=== PATIENT | male | born 1970 | race Caucasian/White ===

== ENCOUNTER 2018-07-12 17:42 | Emergency (ER) | payer SELFPAY ==
[2018-07-12] MEDS ORDERED: ASPIRIN 81 MG TABLET, CHEWABLE PO ONE (18:42)
[2018-07-12] MEDS ORDERED: ONDANSETRON 4 MG TAB.RAPDIS PO ONE (18:44)
--- NOTE | 2018-07-12 18:45 | ER Document Report ---
ED Medical Screen (RME) - General Chief Complaint: Low Back Pain Stated Complaint: BACK PAIN, FREQ URINATION, CHEST PAIN Time Seen by Provider: 07/12/18 18:42 Mode of Arrival: Ambulatory Information source: Patient Notes: Patient with abdominal pain that wraps around the waist for the past 2 weeks and upper abdominal pain to the right upper quadrant and epigastric area for the past 2 weeks as well. Patient states pain will occasionally radiate to the left chest area. Patient is concerned he may be having gallbladder issues. Patient states that he has had urinary frequency for the past 3-4 weeks. Patient does complain of nausea. Patient states that he was incontinent of urine this morning which prompted his visit today. Patient is never had any problems with incontinence. Patient has since been able to hold his urine although he has some urgency with going to the bathroom. Patient denies any fever or vomiting. I have greeted and performed a rapid initial assessment of this patient. A comprehensive ED assessment and evaluation of the patient, analysis of test results and completion of the medical decision making process will be conducted by additional ED providers. TRAVEL OUTSIDE OF THE [place] IN LAST 30 DAYS: No - Related Data Allergies/Adverse Reactions: No Known Allergies Allergy (Verified 07/12/18 17:46) Physical Exam - Vital signs Vitals: Temp Pulse Resp BP Pulse Ox 97.6 F 100 16 142/89 H 97 07/12/18 18:21 07/12/18 18:21 07/12/18 18:21 07/12/18 18:21 07/12/18 18:21 - Abdominal Tenderness: Tender - Epigastric, right upper quadrant, lower abd pain Course - Vital Signs Vital signs: Temp Pulse Resp BP Pulse Ox 97.6 F 100 16 142/89 H 97 07/12/18 18:21 07/12/18 18:21 07/12/18 18:21 07/12/18 18:21 07/12/18 18:21
--- NOTE | 2018-07-12 19:13 | RADIOLOGY REPORT (SQ) ---
EXAM DESCRIPTION: CHEST 2 VIEWS COMPLETED DATE/TIME: 07/12/2018 6:59 pm REASON FOR STUDY: cp COMPARISON: None. EXAM PARAMETERS: NUMBER OF VIEWS: two views TECHNIQUE: Digital Frontal and Lateral radiographic views of the chest acquired. RADIATION DOSE: NA LIMITATIONS: none FINDINGS: LUNGS AND PLEURA: No opacities, masses or pneumothorax. No pleural effusion. MEDIASTINUM AND HILAR STRUCTURES: No masses or contour abnormalities. HEART AND VASCULAR STRUCTURES: Heart normal size. No evidence for failure. BONES: Disc degenerative disease of the thoracic spine. HARDWARE: None in the chest. OTHER: No other significant finding. IMPRESSION: No acute abnormality of the lungs. TECHNICAL DOCUMENTATION: JOB ID: [id number] [employer]- All Rights Reserved Reading location - IP/workstation name: [email or web address]
[2018-07-12 19:32] LABS: ABSOLUTE BASOPHILS # (AUTO) 0.1 10^3/uL (0.0-0.2); ABSOLUTE EOSINOPHILS # (AUTO) 0.3 10^3/uL (0.0-0.6); ABSOLUTE LYMPHOCYTES (AUTO) 2.9 10^3/uL (0.5-4.7); ABSOLUTE MONOCYTES (AUTO) 0.8 10^3/uL (0.1-1.4); ABSOLUTE NEUT (AUTO) 4.2 10^3/uL (1.7-8.2); EOSINOPHILS % (AUTO) 3.4 % (0-6); HEMATOCRIT 41.9 % (37.9-51.0); HEMOGLOBIN 14.5 g/dL (13.5-17.0); LYMPHOCYTES % (AUTO) 35.2 % (13-45); MEAN CORPUSCULAR HEMOGLOBIN 28.7 pg (27.0-33.4); MEAN CORPUSCULAR HGB CONC 34.5 g/dL (32.0-36.0); MEAN CORPUSCULAR VOLUME 83 fl (80-97); MONOCYTES % (AUTO) 9.9 % (3-13); PLATELET COUNT 356 10^3/uL (150-450); RED BLOOD COUNT 5.03 10^6/uL (4.35-5.55); RED CELL DISTRIBUTION WIDTH 14.6 % (11.5-14.0); SEGMENTED NEUTROPHILS % (AUTO) 50.5 % (42-78); TOTAL CELLS COUNTED % (AUTO) 100 %; WHITE BLOOD COUNT 8.3 10^3/uL (4.0-10.5)
[2018-07-12 19:51] LABS: ALANINE AMINOTRANSFERASE 33 U/L (21-72); ALBUMIN 4.5 g/dL (3.5-5.0); ALKALINE PHOSPHATASE 91 U/L (38-126); ANION GAP 13 (5-19); ASPARTATE AMINO TRANSFERASE 37 U/L (17-59); BILIRUBIN,DIRECT 0.4 mg/dL (0.0-0.4); BILIRUBIN,TOTAL 0.4 mg/dL (0.2-1.3); BLOOD UREA NITROGEN 17 mg/dL (7-20); CALCIUM 10.1 mg/dL (8.4-10.2); CARBON DIOXIDE 25 mmol/L (22-30); CHLORIDE 102 mmol/L (98-107); GLUCOSE 85 mg/dL (75-110); LIPASE 107.5 U/L (23-300); POTASSIUM 5.2 mmol/L (3.6-5.0); SODIUM 139.6 mmol/L (137-145); TOTAL PROTEIN 8.2 g/dL (6.3-8.2)
[2018-07-12 19:56] LABS: APPEARANCE,URINE CLEAR; BILIRUBIN,URINE NEGATIVE (NEGATIVE); COLOR,URINE YELLOW; GLUCOSE, URINE NEGATIVE (NEGATIVE); KETONES,URINE NEGATIVE (NEGATIVE); LEUKOCYTE ESTERASE,URINE NEGATIVE (NEGATIVE); NITRITE,URINE NEGATIVE (NEGATIVE); PROTEIN,URINE 100 mg/dL (NEGATIVE); UROBILINOGEN,URINE NEGATIVE mg/dL (<2.0)
--- NOTE | 2018-07-12 21:20 | RADIOLOGY REPORT (SQ) ---
EXAM DESCRIPTION: US ABDOMEN LIMITED COMPLETED DATE/TME: 07/12/2018 18:43 CLINICAL HISTORY: 48 years, Male, upper abd pain Findings: Pancreas is obscured by bowel gas. Aorta is obscured by bowel gas. IVC is not well seen due to shadowing. Liver is not enlarged. No focal lesions. Liver is mildly diffusely echogenic consistent with fatty infiltration. Gallbladder demonstrates mild sludge. No significant wall thickening or pericholecystic fluid. No sonographic Reardon sign. No significant biliary dilatation. Right kidney measures 9.2 cm. There is a moderate right renal cyst measuring 6 cm. No right hydronephrosis. No right upper quadrant ascites. IMPRESSION: Mild gallbladder sludge. No evidence for cholecystitis. No significant biliary dilatation.
[2018-07-12] MEDS ORDERED: ACETAMINOPHEN 325 MG TABLET PO ONE (22:18)
[2018-07-12] MEDS ORDERED: KETOROLAC TROMETHAMINE INJ/PF 30 MG/1 ML SDV IV ONE (23:57)
--- NOTE | 2018-07-13 00:02 | ER Document Report ---
ED Medical Screen (RME) - General Chief Complaint: Low Back Pain Stated Complaint: BACK PAIN, FREQ URINATION, CHEST PAIN Time Seen by Provider: 07/12/18 18:42 Mode of Arrival: Ambulatory TRAVEL OUTSIDE OF THE [place] IN LAST 30 DAYS: No - HPI Notes: 07/12/18 23:58 Patient is a 48-year-old male who has been waiting to get seen here in the emergency department by provider after being triaged earlier this evening. Patient states that he wants to sign out AGAINST MEDICAL ADVICE and go home. Patient was presenting for upper abdominal pain and chest pain. Patient states that his pains have been ongoing for the last 2 weeks. I reviewed with patient his current lab work, biliary sludge, and my recommendations. I advised patient that he should stay for a complete evaluation with thorough abdominal exam and repeat troponin. I reviewed the risk and benefit of staying versus leaving including that he can go home and . Patient is very adamant about going home. He was grateful for the discussion that I had with him pertaining to his current workup. Strict return precautions reviewed. Patient verbalized understanding to the current situation and he still elects to sign out AGAINST MEDICAL ADVICE. - Related Data Allergies/Adverse Reactions: No Known Allergies Allergy (Verified 07/12/18 17:46) Past Medical History - Social History Chew tobacco use (# tins/day): No Frequency of alcohol use: Occasional Drug Abuse: None - Past Medical History Cardiac Medical History: Reports: Hx Hypercholesterolemia, Hx Hypertension Renal/ Medical History: Reports: Hx Kidney Stones. Denies: Hx Peritoneal Dialysis GI Medical History: Reports: Hx Gastroesophageal Reflux Disease Past Surgical History: Reports: Hx Orthopedic Surgery Physical Exam - Vital signs Vitals: Temp Pulse Resp BP Pulse Ox 97.6 F 100 16 142/89 H 97 07/12/18 18:21 07/12/18 18:21 07/12/18 18:21 07/12/18 18:21 07/12/18 18:21 Course - Vital Signs Vital signs: Temp Pulse Resp BP Pulse Ox 97.6 F 100 16 142/89 H 97 07/12/18 18:21 07/12/18 18:21 07/12/18 18:21 07/12/18 18:21 07/12/18 18:21 - Laboratory Result Diagrams: 07/12/18 19:17 07/12/18 19:17 Laboratory results interpreted by me: 07/12/18 07/12/18 07/12/18 19:17 19:17 19:41 RDW 14.6 H Potassium 5.2 H Urine Protein 100 H Urine Blood SMALL H Doctor's Discharge - Discharge Clinical Impression: Abdominal pain Qualifiers: Abdominal location: unspecified location Qualified Code(s): R10.9 - Unspecified abdominal pain Chest pain Qualifiers: Chest pain type: unspecified Qualified Code(s): R07.9 - Chest pain, unspecified Condition: Stable Disposition: AGAINST MEDICAL ADVICE Additional Instructions: As reviewed, you are electing to sign out AGAINST MEDICAL ADVICE. We recommended that he stay to finish your examination as well as workup here in the emergency department. You are aware of the risk that you could go home and . Do not hesitate to return to the emergency department for any reason. Maintain adequate fluid and food intake Low-fat diet Monitor blood pressure and heart rate daily Monitor for any worsening symptoms Make sure you are staying hydrated enough to urinate and have normal BM's Recheck with your PCM tomorrow Consider consult with Gastroenterology/general surgery for ongoing/worsening symptoms Return to the ED with any worsening symptoms and/or development of fever, headache, chest pain, palpitations, syncope, shortness of breath, trouble breathing, abdominal pain, n/v/d, blood in stool/urine, weakness, or other worsening symptoms that are concerning to you. Referrals: GREGORIA JONES MD [ACTIVE STAFF] - Follow up as needed REX WALSH MD [ACTIVE STAFF] - Follow up as needed
[2018-07-13 00:18] VITALS: BP 161/108
--- NOTE | 2018-07-13 08:06 | EKG REPORT ---
SEVERITY:- NORMAL ECG - SINUS RHYTHM : Confirmed by: Salinas Cooper MD 13-Jul-2018 08:05:34
== END 2018-07-13 00:19 | disposition left against medical advice (07) ==
LOC: ER 17:42
DX: R07.9 Chest pain, unspecified (principal); K82.8 Other specified diseases of gallbladder; R10.10 Upper abdominal pain, unspecified; I10 Essential (primary) hypertension; Z87.442 Personal history of urinary calculi; Z87.19 Personal history of other diseases of the digestive system; Z53.20 Procedure and treatment not carried out because of patient's decision for unspecified reasons
CPT/HCPCS: 93005; 99284; 96374; 36415; 83690; 85025; 80053; 81001; 84484; 71046; 76705; 93010; S0119; J1885

== ENCOUNTER 2018-07-14 11:16 | Emergency (ER) | payer MEDICARE ==
[2018-07-14] MEDS ORDERED: NORMAL SALINE 1000 ML 1,000 ML IV ONE (13:20)
[2018-07-14] MEDS ORDERED: ONDANSETRON HCL INJ/PF 4 MG/2 ML SDV IV ONE (13:20)
[2018-07-14] MEDS ORDERED: KETOROLAC TROMETHAMINE INJ/PF 30 MG/1 ML SDV IV ONE (13:20)
--- NOTE | 2018-07-14 13:21 | ER Document Report ---
ED Medical Screen (RME) - General Chief Complaint: Abdominal Pain Stated Complaint: ABDOMINAL PAIN Time Seen by Provider: 07/14/18 13:12 TRAVEL OUTSIDE OF THE [place] IN LAST 30 DAYS: No - HPI Notes: 07/14/18 13:20 Patient is a 48-year-old male that presents to the emergency department for chief complaint of right upper quadrant pain. Patient reports pain in his right upper quadrant for greater than a week. He was seen here last week and left after being triaged. Patient had an ultrasound that showed biliary sludge. He states he is having intermittent pains in his right side and feels like he has a kidney stone that will not pass. He reports urinary incontinence and urgency. He denies dysuria fevers and chills. He has had a few episodes of emesis which she states occur when the pain is very severe. ROS: GENERAL: Denies fever of chills CV: Denies chest pain PHYSICAL EXAMINATION: GENERAL: Well-appearing, well-nourished and in no acute distress. HEAD: Atraumatic, normocephalic. EYES: Pupils equal round extraocular movements intact, conjunctiva are normal. ENT: Nares patent NECK: Normal range of motion LUNGS: No respiratory distress Musculoskeletal: Normal range of motion NEUROLOGICAL: Normal speech, normal gait. PSYCH: Normal mood, normal affect. MDM: Patient seen and examined for rapid initial assessment. Vital signs reviewed. A comprehensive ED assessment and evaluation of the patient, analysis of test results and completion of the medical decision making process will be conducted by additional ED providers. - Related Data Allergies/Adverse Reactions: No Known Allergies Allergy (Verified 07/12/18 17:46) Past Medical History - Social History Chew tobacco use (# tins/day): No - Past Medical History Cardiac Medical History: Reports: Hx Hypercholesterolemia, Hx Hypertension Renal/ Medical History: Reports: Hx Kidney Stones. Denies: Hx Peritoneal Dialysis GI Medical History: Reports: Hx Gastroesophageal Reflux Disease Past Surgical History: Reports: Hx Orthopedic Surgery Physical Exam - Vital signs Vitals: Temp Pulse Resp BP Pulse Ox 97.9 F 110 H 18 142/97 H 95 07/14/18 11:42 07/14/18 11:42 07/14/18 11:42 07/14/18 11:42 07/14/18 11:42 Course - Vital Signs Vital signs: Temp Pulse Resp BP Pulse Ox 97.9 F 110 H 18 142/97 H 95 07/14/18 11:42 07/14/18 11:42 07/14/18 11:42 07/14/18 11:42 07/14/18 11:42
--- NOTE | 2018-07-14 14:39 | RADIOLOGY REPORT (SQ) ---
EXAM DESCRIPTION: CT ABD/PELVIS NO ORAL OR IV COMPLETED DATE/TIME: 07/14/2018 2:17 pm REASON FOR STUDY: right flank pain COMPARISON: None. TECHNIQUE: CT scan of the abdomen and pelvis performed without intravenous or oral contrast. Images reviewed with lung, soft tissue, and bone windows. Reconstructed coronal and sagittal MPR images revi ewed. All images stored on PACS. All CT scanners at this facility use dose modulation, iterative reconstruction, and/or weight based d osing when appropriate to reduce radiation dose to as low as reasonably achievable (ALARA). [facility]: Dose Right [facility]: CareDose [facility]: Dose Right [facility]: Teradose 4D [facility]: Smart BioActor RADIATION DOSE: CT Rad equipment meets quality standard of care and radiation dose reduction techniq ues were employed. CTDIvol: 18.3 mGy. DLP: 1089 mGy-cm.mGy. LIMITATIONS: None. FINDINGS: LOWER CHEST: No significant findings. No nodules or infiltrates. NON-CONTRASTED LIVER, SPLEEN, ADRENALS: Evaluation limited by lack of IV contrast. No identified sign ificant masses. PANCREAS: No masses. No peripancreatic inflammatory changes. GALLBLADDER: No identified stones by CT criteria. No inflammatory changes to suggest cholecystitis. RIGHT KIDNEY AND URETER: Cortical cysts. No suspicious masses. Assessment limited by lack of IV cont rast. No significant calcifications. No hydronephrosis or hydroureter. LEFT KIDNEY AND URETER: Cortical cysts. No suspicious masses. Assessment limited by lack of IV contr ast. 1 mm stone lower pole. No hydronephrosis or hydroureter. AORTA AND RETROPERITONEUM: No aneurysm. No retroperitoneal masses or adenopathy. BOWEL AND PERITONEAL CAVITY: Sigmoid diverticulosis. No obvious masses or inflammatory changes. No f ree fluid. APPENDIX: Normal. PELVIS, BLADDER, AND ABDOMINAL WALL:No abnormal masses. No free fluid. Bladder normal. BONES: No acute findings. OTHER: No other significant finding. IMPRESSION: 1. Nonobstructing stone left kidney. 2. Diverticulosis without evidence of diverticulitis. COMMENT: Quality ID # [id number]: Final reports with documentation of one or more dose reduction techniques (e.g., Automated exposure control, adjustment of the mA and/or kV according to patient size, use of iterative reconstruction technique) TECHNICAL DOCUMENTATION: JOB ID: [id number]- All Rights Reserved Reading location - IP/workstation name: [email or web address]
[2018-07-14 15:05] LABS: ABSOLUTE BASOPHILS # (AUTO) 0.1 10^3/uL (0.0-0.2); ABSOLUTE EOSINOPHILS # (AUTO) 0.2 10^3/uL (0.0-0.6); ABSOLUTE LYMPHOCYTES (AUTO) 2.7 10^3/uL (0.5-4.7); ABSOLUTE MONOCYTES (AUTO) 0.7 10^3/uL (0.1-1.4); ABSOLUTE NEUT (AUTO) 5.5 10^3/uL (1.7-8.2); BASOPHILS % (AUTO) 0.8 % (0-2); EOSINOPHILS % (AUTO) 2.1 % (0-6); HEMATOCRIT 40.6 % (37.9-51.0); HEMOGLOBIN 13.9 g/dL (13.5-17.0); LYMPHOCYTES % (AUTO) 29.9 % (13-45); MEAN CORPUSCULAR HEMOGLOBIN 28.4 pg (27.0-33.4); MEAN CORPUSCULAR HGB CONC 34.2 g/dL (32.0-36.0); MEAN CORPUSCULAR VOLUME 83 fl (80-97); MONOCYTES % (AUTO) 7.1 % (3-13); PLATELET COUNT 310 10^3/uL (150-450); RED CELL DISTRIBUTION WIDTH 14.7 % (11.5-14.0); SEGMENTED NEUTROPHILS % (AUTO) 60.1 % (42-78); TOTAL CELLS COUNTED % (AUTO) 100 %; WHITE BLOOD COUNT 9.1 10^3/uL (4.0-10.5)
[2018-07-14 15:26] LABS: ALANINE AMINOTRANSFERASE 44 U/L (21-72); ALBUMIN 4.5 g/dL (3.5-5.0); ALKALINE PHOSPHATASE 84 U/L (38-126); ANION GAP 9 (5-19); ASPARTATE AMINO TRANSFERASE 36 U/L (17-59); BILIRUBIN,DIRECT 0.2 mg/dL (0.0-0.4); BILIRUBIN,TOTAL 0.4 mg/dL (0.2-1.3); BLOOD UREA NITROGEN 19 mg/dL (7-20); CALCIUM 10.1 mg/dL (8.4-10.2); CARBON DIOXIDE 27 mmol/L (22-30); CHLORIDE 103 mmol/L (98-107); GLUCOSE 86 mg/dL (75-110); LIPASE 67.1 U/L (23-300); POTASSIUM 4.8 mmol/L (3.6-5.0); SODIUM 139.1 mmol/L (137-145); TOTAL PROTEIN 8.2 g/dL (6.3-8.2)
[2018-07-14] MEDS ORDERED: MORPHINE SULFATE 10 MG/ML INJ IV ONE ×2 (17:17→19:17)
--- NOTE | 2018-07-14 17:36 | RADIOLOGY REPORT (SQ) ---
EXAM DESCRIPTION: U/S ABDOMEN LIMITED W/O DOP COMPLETED DATE/TIME: 07/14/2018 4:50 pm REASON FOR STUDY: RUQ pain COMPARISON: 1. CT abdomen and pelvis 07/14/2018 2. Right upper quadrant ultrasound 07/12/2018 TECHNIQUE: Dynamic and static grayscale images acquired of the abdomen and recorded on PACS. Additio nal selected color Doppler and spectral images recorded. LIMITATIONS: None. FINDINGS: PANCREAS: No masses. Visualized pancreatic duct normal caliber. LIVER: No masses. Echotexture normal. LIVER VASCULATURE: Normal directional flow of the main portal vein and hepatic veins. GALLBLADDER: No stones. Normal wall thickness. No pericholecystic fluid. ULTRASOUND-DETECTED CARVER'S SIGN: Negative. INTRAHEPATIC DUCTS AND COMMON DUCT: CBD and intrahepatic ducts normal caliber. No filling defects. INFERIOR VENA CAVA: Normal flow. AORTA: No aneurysm. RIGHT KIDNEY: Normal size and echogenicity, again noting 2 simple cysts. No hydronephrosis. No la nena id masses. PERITONEAL AND RIGHT PLEURAL SPACE: No ascites or effusions. OTHER: No other significant findings. IMPRESSION: No evidence of cholelithiasis or cholecystitis. Right renal cysts as seen on comparison CT and ultrasound imaging. TECHNICAL DOCUMENTATION: JOB ID: [id number] [employer]- All Rights Reserved Reading location - IP/workstation name: [email or web address]
--- NOTE | 2018-07-14 18:05 | ER Document Report ---
ED General - General Chief Complaint: Abdominal Pain Stated Complaint: ABDOMINAL PAIN Time Seen by Provider: 07/14/18 13:12 Primary Care Provider: YULY COSTELLO MD [COMMUNITY BASED STAFF] - Follow up tomorrow (primary care. ) Notes: Patient is a 48-year-old male with history of kidney stones that presents to the emergency department for chief complaint of right-sided abdominal pain. Patient reports having on and off pain for the past several months, and seemingly got worse over the past 24 hours. He describes the pain as a constant aching sensation, 7 out of 10 pain, rating from the right flank, towards the right upper quadrant as well. He said associated nausea and sweats. Denies fevers, chest pain, shortness of breath, difficulty breathing. He does admit to having some hematuria as well as some dysuria as well. Past Medical History: Kidney stones Past Surgical History: Lithotripsy Social History: Admits to smoking cigarettes, denies alcohol or drug use. Family History: Reviewed and noncontributory for presenting illness Allergies: Reviewed, see documented allergy list. REVIEW OF SYSTEMS: Other than noted above, the 12 point review of systems was reviewed with the patient and were negative, all pertinent findings are included in the HPI. PHYSICAL EXAMINATION: Vital signs reviewed, nursing noted reviewed. GENERAL: Obese male, no acute distress. HEAD: Atraumatic, normocephalic. EYES: Eyes appear normal, extraocular movements intact, sclera anicteric, conjunctiva are normal. ENT: nares patent, oropharynx clear without exudates. Moist mucous membranes. NECK: Normal range of motion, supple without lymphadenopathy LUNGS: Breath sounds clear to auscultation bilaterally and equal. No wheezes rales or rhonchi. HEART: Regular rate and rhythm without murmurs ABDOMEN: Soft, obese, mild right CVA tenderness, normoactive bowel sounds. No rebound, guarding, or rigidity. No masses appreciated. EXTREMITIES: Nontender, good range of motion, no pitting or edema. NEUROLOGICAL: No focal neurological deficits. Moves all extremities spontaneously Motor and sensory grossly intact on exam. PSYCH: Normal mood, normal affect. SKIN: Warm, Dry, normal turgor, no rashes or lesions noted on exposed skin TRAVEL OUTSIDE OF THE [place] IN LAST 30 DAYS: No - Related Data Allergies/Adverse Reactions: No Known Allergies Allergy (Verified 07/12/18 17:46) Past Medical History - Social History Smoking Status: Current Every Day Smoker Chew tobacco use (# tins/day): No Family History: Reviewed & Not Pertinent Patient has suicidal ideation: No Patient has homicidal ideation: No - Past Medical History Cardiac Medical History: Reports: Hx Hypercholesterolemia, Hx Hypertension Renal/ Medical History: Reports: Hx Kidney Stones. Denies: Hx Peritoneal Dialysis GI Medical History: Reports: Hx Gastroesophageal Reflux Disease Past Surgical History: Reports: Hx Orthopedic Surgery Physical Exam - Vital signs Vitals: Temp Pulse Resp BP Pulse Ox 97.9 F 110 H 18 142/97 H 95 07/14/18 11:42 07/14/18 11:42 07/14/18 11:42 07/14/18 11:42 07/14/18 11:42 Course - Re-evaluation Re-evalutation: Patient seen and examined vital signs reviewed. Laboratory data and imaging were ordered as appropriate for the patient's presenting symptoms and complaint, with consideration of any critical or life threatening conditions that may be associated with their obtained history and exam as noted above. Patient was treated with IV fluids, IV morphine and Toradol Results were reviewed when available and demonstrated unremarkable blood work, and urinalysis, CT imaging and right upper quadrant ultrasound were negative for any acute findings that would explain the patient's symptoms, there was a 1 mm stone in the right lower pole of the kidney, but no obstruction or hydronephrosis. The patient was re-evaluated and was stable Evaluation was most consistent with renal colic and abdominal pain, nonspecific, advised to follow-up with urology. Results were discussed with the patient at this point, after careful consideration I feel that that patient can be discharged from the emergency department, the patient was educated treatments and reasons to return to the emergency department based on their presumed diagnosis as noted above, they were advised to followup with a primary care physician in 2-3 days. Patient was agreeable to plan of care. *Note is created using voice recognition software and may contain spelling, syntax or grammatical errors. Laboratory 07/14/18 07/14/18 07/14/18 14:50 14:50 18:15 WBC 9.1 RBC 4.90 Hgb 13.9 Hct 40.6 MCV 83 MCH 28.4 MCHC 34.2 RDW 14.7 H Plt Count 310 Seg Neutrophils % 60.1 Lymphocytes % 29.9 Monocytes % 7.1 Eosinophils % 2.1 Basophils % 0.8 Absolute Neutrophils 5.5 Absolute Lymphocytes 2.7 Absolute Monocytes 0.7 Absolute Eosinophils 0.2 Absolute Basophils 0.1 Sodium 139.1 Potassium 4.8 Chloride 103 Carbon Dioxide 27 Anion Gap 9 BUN 19 Creatinine 1.00 Est GFR ( Amer) > 60 Est GFR (Non-Af Amer) > 60 Glucose 86 Calcium 10.1 Total Bilirubin 0.4 Direct Bilirubin 0.2 Neonat Total Bilirubin Not Reportable Neonat Direct Bilirubin Not Reportable Neonat Indirect Bili Not Reportable AST 36 ALT 44 Alkaline Phosphatase 84 Total Protein 8.2 Albumin 4.5 Lipase 67.1 Urine Color YELLOW Urine Appearance SLIGHTLY-CLOUDY Urine pH 5.0 Ur Specific [place] 1.019 Urine Protein 100 H Urine Glucose (UA) NEGATIVE Urine Ketones NEGATIVE Urine Blood NEGATIVE Urine Nitrite NEGATIVE Urine Bilirubin NEGATIVE Urine Urobilinogen NEGATIVE Ur Leukocyte Esterase NEGATIVE Urine WBC (Auto) 2 Urine RBC (Auto) 2 U Hyaline Cast (Auto) 20 Squamous Epi Cells Auto <1 Urine Mucus (Auto) RARE Urine Ascorbic Acid NEGATIVE Abdomen Ultrasound 07/14/18 13:20 IMPRESSION: No evidence of cholelithiasis or cholecystitis. Right renal cysts as seen on comparison CT and ultrasound imaging. Abdomen/Pelvis CT 07/14/18 13:20 IMPRESSION: 1. Nonobstructing stone left kidney. 2. Diverticulosis without evidence of diverticulitis. - Vital Signs Vital signs: Temp Pulse Resp BP Pulse Ox 98.5 F 95 16 131/89 H 97 07/14/18 19:32 07/14/18 19:32 07/14/18 19:32 07/14/18 19:32 07/14/18 19:32 - Laboratory Result Diagrams: 07/14/18 14:50 07/14/18 14:50 Laboratory results interpreted by me: 07/14/18 07/14/18 14:50 18:15 RDW 14.7 H Urine Protein 100 H Discharge - Discharge Clinical Impression: Abdominal pain Qualifiers: Abdominal location: unspecified location Qualified Code(s): R10.9 - Unspecified abdominal pain Condition: Stable Disposition: HOME, SELF-CARE Instructions: Abdominal Pain ([facility]) Additional Instructions: Please return to the emergency department if you have any worsening, or concern of your symptoms. Please return to the emergency department if you develop chest pain, difficulty breathing, severe abdominal pain, or ongoing vomiting. Please follow-up with your primary care physician in 2-3 days and any other recommended physicians. If prescribed, take all medications as directed. If you have any questions or concerns do not hesitate to return the emergency department for evaluation. If you continue to have issues with urination and you remain in the area, please follow-up with 1 of the urologist listed below [email or web address] [address] [facility] [email or web address] [address] [facility] [email or web address] Prescriptions: RX: Naproxen 500 mg PO BID #30 tablet Tamsulosin HCl [Flomax 0.4 mg Cap.sr] 0.4 mg PO DAILY #14 cap.sr.24h Referrals: YULY COSTELLO MD [COMMUNITY BASED STAFF] - Follow up tomorrow (primary care. )
[2018-07-14 18:32] LABS: APPEARANCE,URINE SLIGHTLY-CLOUDY; BILIRUBIN,URINE NEGATIVE (NEGATIVE); COLOR,URINE YELLOW; GLUCOSE, URINE NEGATIVE (NEGATIVE); KETONES,URINE NEGATIVE (NEGATIVE); LEUKOCYTE ESTERASE,URINE NEGATIVE (NEGATIVE); NITRITE,URINE NEGATIVE (NEGATIVE); PROTEIN,URINE 100 mg/dL (NEGATIVE); URINE SPECIFIC GRAVITY 1.019; UROBILINOGEN,URINE NEGATIVE mg/dL (<2.0)
[2018-07-14 19:33] VITALS: BP 131/89
== END 2018-07-14 19:32 | disposition home or self-care (01) ==
LOC: ER 11:16
DX: R10.9 Unspecified abdominal pain (principal); R11.0 Nausea; R61 Generalized hyperhidrosis; R31.9 Hematuria, unspecified; R30.0 Dysuria; F17.210 Nicotine dependence, cigarettes, uncomplicated; I10 Essential (primary) hypertension
CPT/HCPCS: 96376; 99284; 96361; 96374; 96375; 36415; 87086; 83690; 85025; 80053; 81001; 76705; 74176; J1885; J2270; J2405; J7030